=== PATIENT | male | born 1995 ===

== ENCOUNTER 2021-10-02 09:38 | Emergency (ER) | payer SELFPAY | END 2021-10-02 10:27 | disposition left against medical advice (07) | LOC: ED 09:38 | DX: F19.10 Other psychoactive substance abuse, uncomplicated (principal); Z53.21 Procedure and treatment not carried out due to patient leaving prior to being seen by health care provider ==

== ENCOUNTER 2021-10-03 01:05 | Emergency (ER) | payer SELFPAY ==
[2021-10-03 08:39] VITALS: BP 111/61
--- NOTE | 2021-10-03 08:39 | Emergency Department Report ---
ED Chest Pain HPI - General Chief Complaint: Pain General Stated Complaint: BODY ACHES PUI?: No Time Seen by Provider: 10/03/21 08:38 Source: EMS Mode of arrival: Stretcher Limitations: No Limitations - History of Present Illness Initial Comments: 26 yo comes to ER-several times- co cp p cocaine use. MD Complaint: chest pain -: Gradual, days(s) Onset: during rest Pain Location: left chest, right chest Pain Radiation: none Severity: mild Severity scale (0 -10): 5 Quality: tightness Consistency: constant Improves With: nothing Worsens With: other Treatments Prior to Arrival: none Aspirin use within the Past 7 Days: (0) No - Related Data On Oral Contraceptives: No Allergies Allergy/AdvReac Type Severity Reaction Status Date / Time No Known Allergies Allergy Verified 10/03/21 01:43 Heart Score - HEART Score History: Slightly suspicious EKG: Normal Age: < 45 Risk factors: 1-2 risk factors Troponin: < normal limit (not done) HEART Score: 1 - EKG Read Time Time EKG Completed: 09:00 (not done) EKG Read Time: 09:00 (not done) ED Review of Systems ROS: Stated complaint: BODY ACHES Other details as noted in HPI Comment: All other systems reviewed and negative ED Past Medical Hx - Past Medical History Previous Medical History?: No - Surgical History Past Surgical History?: No - Family History Family history: no significant - Social History Smoking Status: Current Every Day Smoker Substance Use Type: Alcohol, Cocaine ED Physical Exam - General Limitations: No Limitations General appearance: alert, appears intoxicated - Head Head exam: Present: atraumatic, normocephalic - Eye Eye exam: Present: normal appearance - ENT ENT exam: Present: mucous membranes moist - Neck Neck exam: Present: normal inspection - Respiratory Respiratory exam: Present: normal lung sounds bilaterally. Absent: respiratory distress - Cardiovascular Cardiovascular Exam: Present: regular rate, normal rhythm. Absent: systolic murmur, diastolic murmur, rubs, gallop - GI/Abdominal GI/Abdominal exam: Present: soft, normal bowel sounds - Rectal Rectal exam: Present: deferred - Extremities Exam Extremities exam: Present: normal inspection - Back Exam Back exam: Present: normal inspection - Neurological Exam Neurological exam: Present: alert, oriented X3 - Psychiatric Psychiatric exam: Present: normal affect, normal mood - Skin Skin exam: Present: warm, dry, intact, normal color. Absent: rash ED Course Vital Signs 10/03/21 10/03/21 01:42 08:36 Temperature 98.5 F 97.8 F Pulse Rate 88 65 Respiratory 16 18 Rate Blood Pressure 111/61 Blood Pressure 136/68 [Left] O2 Sat by Pulse 100 98 Oximetry JAM score - Jam Score Age > 65: (0) No Aspirin use within the Past 7 Days: (0) No 3 or more CAD Risk Factors: (0) No 2 or more Angina events in past 24 hrs: (0) No Known CAD with more than 50% Stenosis: (0) No Elevated Cardiac Markers: (0) No (not done) ST Deviation Greater than 0.5mm: (0) No JAM Score: 0 ED Medical Decision Making - Radiology Data Radiology results: report reviewed, image reviewed - Medical Decision Making pt left ER- security called- RN and security attempted to find pt-- unable to locate Vital Signs 10/03/21 10/03/21 01:42 08:36 Temperature 98.5 F 97.8 F Pulse Rate 88 65 Respiratory 16 18 Rate Blood Pressure 111/61 Blood Pressure 136/68 [Left] O2 Sat by Pulse 100 98 Oximetry - Differential Diagnosis ro cocaine induced mi Critical care attestation.: If time is entered above; I have spent that time in minutes in the direct care of this critically ill patient, excluding procedure time. ED Disposition Clinical Impression: Chest pain Disposition: 07 LEFT AWOL/ELOPED Is pt being admited?: No Condition: Stable Instructions: Nonspecific Chest Pain, Adult Referrals: PRIMARY CARE, [Primary Care Provider] - 3-5 Days Time of Disposition: 09:15
--- NOTE | 2021-10-03 09:01 | XRay Report ---
CHEST PA AND LATERAL VIEWS INDICATION: Chest pain. COMPARISON: None. FINDINGS: Support devices: None. Heart: Within normal limits. Lungs/Pleura: No acute pulmonary or pleural findings. IMPRESSION: 1. No acute findings. Signer Name: Germain Fisher MD Signed: 10/03/2021 8:56 AM Workstation Name: [id number]
== END 2021-10-03 09:06 | disposition left against medical advice (07) ==
LOC: ED 01:05
DX: R07.9 Chest pain, unspecified (principal); F17.200 Nicotine dependence, unspecified, uncomplicated; F10.20 Alcohol dependence, uncomplicated; F12.90 Cannabis use, unspecified, uncomplicated
CPT/HCPCS: 71046; 99283